=== PATIENT | male | born 1955 | race Caucasian/White ===

== ENCOUNTER → 2017-06-28 | Outpatient (CLI) | payer MEDICARE ==
[~2017-06-28] MED LIST: ALEVE PO; LORTAB 7.5-5001 TAB PO; PATIENT'S PHARMACY; PROTONIX PO; SOMA COMPOUND T1 TAB PO; SOMA PO
--- NOTE | ~2017-06-28 | US37 ---
[facility] A Service of [facility] RADIOLOGY TEXT RESULTS PATIENT: ANGELA BARBER LOCATION: SNIV : 59 UNIT #: [id number] AGE: [address]: STU ABEBE SEX: M ORDER DR: [id number] [place] [id number] O MR#: [id number] Acc #: [id number] NAME: ANGELA BARBER : 1955 SEX: M STUDY DATE/TIME: 06/28/2017 10:28 UNIT: SNIV ROOM: STUDY DESCRIPTION: US Carotid W/Doppler Bilateral Attending Physician: Stu Abebe Aprn Referring Physician: Stu Abebe Aprn Ordering Physician: Stu Abebe Aprn Primary Care Physician: Wendy Waters M.D. MEDICAL IMAGING REPORT This report is preliminary unless electronic signature is present. EXAM Carotid Doppler bilateral, 06/28/2017 HISTORY Acute onset of right side facial numbness beginning 2 months ago and left arm numbness. Hypertension and blurred vision. Evaluate for carotid stenosis. FINDINGS [place]-scale carotid artery images were obtained, as well as Doppler waveform spectral analysis and color flow Doppler imaging. The examination was interpreted according to NASCET criteria. There is no hemodynamically significant stenosis in either carotid artery. Peak systolic velocity in the right and left internal carotid arteries was 54 cm/sec and 72 cm/sec, respectively. Antegrade blood flow is seen in both vertebral arteries. There is mild calcified plaque, bilaterally. IMPRESSION No hemodynamically significant stenosis in either carotid artery. Dictated by... Dennis Bettencourt M.D. THIS IS AN ELECTRONICALLY VERIFIED REPORT Dennis Bettencourt M.D. at 06/29/2017 7:55 AM NEELA/david TD: 06/28/2017 12:35 JOB #: [id number] MEDICAL IMAGING REPORT [facility] A Service of [facility] RADIOLOGY TEXT RESULTS PATIENT: ANGELA BARBER LOCATION: SNIV : 59 UNIT #: [id number] AGE: [address]: STU ABEBE SEX: M ORDER DR: Page 1 of 1
== END | disposition home or self-care (01) ==
LOC: SNIV 10:11
DX: R20.0 Anesthesia of skin (principal)
CPT/HCPCS: 93880